=== PATIENT | male | born 1990 | race Caucasian/White ===

== ENCOUNTER 2018-11-03 19:07 | Emergency (ER) | payer BC ==
--- NOTE | 2018-11-03 19:30 | EDM.PDOC ---
ED HPI GENERAL MEDICAL PROBLEM - General Chief Complaint: Bite:Animal, Insect Stated Complaint: DOG BITE Time Seen by Provider: 11/03/18 19:15 Source of Information: Reports: Patient History Limitations: Reports: No Limitations - History of Present Illness INITIAL COMMENTS - FREE TEXT/NARRATIVE: Patient comes into the emergency department with complaint of right hand injury. Patient states that he was at home and his 2 dogs got in a fight. When he tried to separate the 2 dogs one of his dogs who weighs approximately 60 pounds latch onto his finger causing a break in the skin. Patient did shoot one of the two dogs. He states the dog that bit him is up to date with his shots including rabies vaccine. Patient does state that he has limited range of motion for that hand is extremely painful. He denies any CMS issues. Onset: Sudden Quality: Reports: Sharp, Stabbing, Throbbing Severity: Moderate Improves with: Reports: Immobilization Worsens with: Reports: Movement Context: Reports: Other Associated Symptoms: Reports: No Other Symptoms - Related Data Allergies Allergy/AdvReac Type Severity Reaction Status Date / Time No Known Allergies Allergy Verified 11/03/18 19:25 Home Meds: Home Meds cephALEXin [Keflex] 500 mg PO Q8H 7 Days #21 cap 11/03/18 [Rx] ED ROS GENERAL - Review of Systems Review Of Systems: See Below Constitutional: Reports: No Symptoms HEENT: Reports: No Symptoms Respiratory: Reports: No Symptoms Cardiovascular: Reports: No Symptoms Endocrine: Reports: No Symptoms GI/Abdominal: Reports: No Symptoms, Mucous in Stool : Reports: No Symptoms Musculoskeletal: Reports: Hand Pain Skin: Reports: No Symptoms Neurological: Reports: No Symptoms Psychiatric: Reports: No Symptoms Hematologic/Lymphatic: Reports: No Symptoms Immunologic: Reports: No Symptoms ED EXAM, ANIMAL BITE - Physical Exam Exam: See Below Exam Limited By: No Limitations General Appearance: Alert, WD/WN, No Apparent Distress Head: Atraumatic, Normocephalic Neck: Normal Inspection, Supple, Non-Tender Respiratory/Chest: No Respiratory Distress, Lungs Clear, No Accessory Muscle Use Cardiovascular: Normal Peripheral Pulses, Regular Rate, Rhythm Back Exam: Normal Inspection, Full Range of Motion Extremities: Arm Pain (right hand index finger. 4 puncture wounds noted. limited range of motion due to pain. CMS intact. no bleeding noted) Neurological: Alert, Oriented Psychiatric: Normal Affect, Normal Mood Skin Exam: Normal Color, Warm/Dry Course - Orders/Labs/Meds Orders: Active Orders 24 hr Category Date Time Status Hand Comp Min 3V Rt [CR] Stat Exams 11/03/18 19:19 Ordered Meds: Medications Discontinued Medications Generic Name Dose Route Start Last Admin Trade Name Deon PRN Reason Stop Dose Admin Ceftriaxone Sodium 1 gm 11/03/18 19:20 Rocephin IVPUSH 11/03/18 19:21 ONETIME ONE Departure - Departure Time of Disposition: 20:20 Disposition: Home, Self-Care 01 Condition: Good Clinical Impression: Dog bite Qualifiers: Encounter type: initial encounter Qualified Code(s): W54.0XXA - Bitten by dog, initial encounter - Discharge Information *PRESCRIPTION DRUG MONITORING PROGRAM REVIEWED*: Not Applicable *COPY OF PRESCRIPTION DRUG MONITORING REPORT IN PATIENT ORIN: Not Applicable Prescriptions: cephALEXin [Keflex] 500 mg PO Q8H 7 Days #21 cap Instructions: Animal Bite, [id number], Pain Medicine Instructions, Easy-to- Read Forms: ED Department Discharge, ED Return to Work/School Form Additional Instructions: 1. rest 2. Keep the hand clean and dry 3. Soak hand for 20 mins in warm soapy water for the next 3 days 4. When working keep hand covered 5. Take antibiotics as prescribed 6. Take a probiotic daily while taking an antibiotic to promote GI health 7. Follow up with PCP with any signs of infection 8. Can take OTC pain medications as needed for discomfort 9. Call with any questions or concerns - My Orders Last 24 Hours: My Active Orders 11/03/18 19:19 Hand Comp Min 3V Rt [CR] Stat - Assessment/Plan Last 24 Hours: My Active Orders 11/03/18 19:19 Hand Comp Min 3V Rt [CR] Stat Assessment:: 1. right hand bite injury Plan: 1. xray of right hand 2. wound washing of hand 3. Rocephin injection given in ED 4. Script of Keflex sent with pt. 5. PD contacted regarding dog bite 6. Education provided regarding sign and symptoms of infection 7. All questions and concerns addressed prior to discharge
--- NOTE | 2018-11-03 19:53 | CR ---
[id number] RAD/RAD Hand Right 3V Exam: RAD Hand Right 3V Indication:DOG BITE Comparison: No prior imaging for comparison. Discussion: Negative for fracture or dislocation. No retained radiopaque foreign bodies. Impression: No acute findings. Marlon Figueroa MD 11/03/181951 Thank you for allowing us to participate in the care of your patient.
[2018-11-03] MEDS: Diphtheria,Pertussis(Acell),Tetanus Vaccine 0.5 ML Syringe IM ONE (19:59)
[2018-11-03] MEDS: cefTRIAXone 1 GM Vial IVPUSH ONE (19:59)
== END 2018-11-03 20:28 | disposition home or self-care (01) ==
LOC: VM.ED 19:07
DX: S61.250A Open bite of right index finger without damage to nail, initial encounter (principal); W54.0XXA Bitten by dog, initial encounter; Z23 Encounter for immunization
CPT/HCPCS: 73130; 90471; 90715; 96372; 99283; J0696